=== PATIENT | male | born 2000 | race African-American/Black ===

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

== ENCOUNTER 2025-05-31 16:59 | Emergency (ER) | payer SELFPAY ==
--- NOTE | 2025-05-31 17:08 | ED_ITS ---
HPI - URI/Sore Throat General Chief Complaint: Chest Pain Stated Complaint: Chest discomfort Time Seen by Provider: 05/31/25 17:08 Source: patient Mode of arrival: ambulatory Limitations: no limitations History of Present Illness HPI Narrative: patient is a 24-year-old male who presents with chest discomfort including sharp left-sided pain and pressure across chest for 3 days. Patient states lying down increases pressure and has increased shortness of breath. Denies any belching burning in throat or changes in diet. At times he has nausea with chest pain. Also reports feeling full body numbness, fatigue and sweating. Patient has no official diagnosis of anxiety but states he has been under increased stress and reports feeling anxious. Patient has been given referral to psychiatry in the past but has not followed up. Chest pain is not positional and not reproducible upon palpation. Reports chest pain is present at this time. Patient took DayQuil and NyQuil the 1st day because he thought was a cold. Patient has some congestion but no sore throat or cough. Has not had any fever, chills, vomiting or diarrhea. Related Data Home Medications ?Medication ?Instructions ?Recorded ?Confirmed ?Last Taken ?Type No Home Medications 12/28/20 05/31/25 U nknown History Allergies Allergy/AdvReac Type Severity Reaction Status Date / Time No Known Allergies Allergy Verified 05/31/25 17:32 Review of Systems Review of Systems: All systems reviewed & are unremarkable except as noted in HPI and below Constitutional: Constitutional: Denies body ache(s), Denies chills, Denies fatigue, Denies fever(s), Denies headache(s), Denies malaise and Denies weakness Eyes: Eyes: Denies blurry vision, Denies irritation and Denies loss of vision ENT: Denies otalgia, Denies headache(s), Denies nasal discharge, Denies sinus pain and Denies sore throat Cardiovascular: Cardiovascular: Reports chest pain, Reports chest pain at rest, Denies irregular heart rhythm and Denies dyspnea Respiratory: Respiratory: Reports dyspnea Gastrointestinal: Gastrointestinal: Denies abdominal pain, Denies melena, Denies hematochezia, Denies diarrhea, Denies nausea and Denies vomiting Musculoskeletal: Musculoskeletal: Denies back pain, Denies myalgias and Denies arthralgias Integumentary/Breasts: Skin/Breast: Denies pruritus and Denies rash Neurologic: Denies headache(s), Denies loss of vision and Denies weakness Psychiatric: Psychiatric: Reports no additional psychiatric complaints Endocrine: Endocrine: Denies fatigue PMFSH Comments At time of signature, agree with nursing past medical, surgical, social and family history. There is no relevant family history pertinent to the presenting complaint. Exam Const: General: cooperative, healthy appearing, comfortable, no acute distress and well nourished Nutritional Appearance: well nourished Orientation/consciousness: patient oriented x3 Limitations: no limitations HENMT: Head: normal to inspection, normocephalic and atraumatic Ears: hearing grossly normal bilaterally and external ears normal Face/Nose/Sinus: Normal external nose present, normal facial exam and face symmetric Face and sinus: normal facial exam and face symmetric Mouth: Yes lip normal Eyes: General: appearance normal, both eyes and all related structures Alignment and Position: alignment normal and position normal Periorbital: periorbital findings normal Eyelids: eyelids normal Pupils: Equal, round and reactive pupils present EOM: EOMs intact bilaterally Neck: Neck: normal visual inspection, full ROM and supple Chest: Chest palpation & inspection: normal inspection of the chest Resp: Effort & Inspection: normal respiratory effort and able to speak in complete sentences Auscultation: clear to auscultation bilaterally Cardio: Rate: regular rate Rhythm: regular rhythm Heart sounds: S1 normal heart sound present and S2 normal heart sound present GI: Inspection: normal to inspection Skin: General skin exam: normal color and no rashes or lesions noted Neuro: General: patient oriented x3 and moves all extremities Cranial nerves: Yes Equal, round and reactive pupils present Speech: normal speech Gait exam (Neuro): Normal gait present Extrem: General: normal to inspection, full ROM and no edema Psych: Appearance: grossly normal and well kempt Mental Status: mental status grossly normal Speech and movement: Normal speech and movement present Affect: normal affect Attitude: cooperative Thought process: Normal thought process present Course Course Emergency Course: patient being transferred [facility] for further workup and evaluation for chest pain Portions of this record may have been created with voice recognition software Level of Care: Express Care Visit Vital Signs Vital signs: Vital Signs Temperature 36.9 C 05/31/25 17:17 Pulse Rate 68 05/31/25 17:17 Respiratory Rate 20 05/31/25 17:17 Blood Pressure 125/68 05/31/25 17:17 Pulse Oximetry 100 05/31/25 17:17 Oxygen Delivery Room Air 05/31/25 17:17 Temperature 36.9 C 05/31/25 17:17 Pulse Rate 68 05/31/25 17:17 Respiratory Rate 20 05/31/25 17:17 Blood Pressure 125/68 05/31/25 17:17 Pulse Oximetry 100 05/31/25 17:23 Oxygen Delivery Room Air 05/31/25 17:23 Reviewed Transfer Transfered to: [place] Transportation: Other ( private auto. Ems offered patient declined) Transfer rationale: chest pain Accepting physician: Dr. Henry MDM - URI/Sore Throat MDM Narrative Medical decision making narrative: patient is a 24-year-old male who presents with chest discomfort including sharp left-sided pain and pressure across chest for 3 days. Patient states lying down increases pressure and has increased shortness of breath. Denies any belching burning in throat or changes in diet. At times he has nausea with chest pain. Also reports feeling full body numbness, fatigue and sweating. Patient has no official diagnosis of anxiety but states he has been under increased stress and reports feeling anxious. Patient has been given referral to psychiatry in the past but has not followed up. Chest pain is not positional and not reproducible upon palpation. Reports chest pain is present at this time. Patient took DayQuil and NyQuil the 1st day because he thought was a cold. Patient has some congestion but no sore throat or cough. Has not had any fever, chills, vomiting or diarrhea. patient being transferred [facility] for further workup and evaluation for chest pain. Likely anxiety related in nature. Differential Diagnosis Differential diagnosis: Likely upper respiratory infection and other ( Anxiety, less likely [place]) Medical Records Attestation: I reviewed the patient's medical records. ECG Data EKG #1: Attestation: I personally reviewed and interpreted this ECG as follows: ECG completion date: 05/31/25 ECG completion time: 17:25 Prior ECG tracings: not available for review Interpretation: EKG: VR[76], TX int[143], QRS dur:[105], QT/QTc: [308/411], PRT axes: [9 -6 17], Avg RR:[781], QTcB: [429], QTcF: [412] EKG Interpretation: normal rate and sinus rhythm Discharge Plan Discharge Clinical Impression: Chest pain Patient Disposition: Acute Care Hospital Condition: Stable Patient Language: [place] Prescriptions: No Action No Home Medications Follow-up/Referrals: PHYSICIAN,TWISTER TENDER [Primary Care Provider, Internal Medicine] Time of Disposition: 17:45
[2025-05-31 17:17] VITALS: BP 125/68; PULSE 68; RESP 20; TEMP 36.9; O2SAT 100
[2025-05-31 17:23] VITALS: O2SAT 100
--- NOTE | 2025-05-31 17:49 | ECG_ITS ---
Test Date: 2025-05-31 17:25:03 Measurements Intervals [place] Rate: 76 P: 9 HI: 143 QRS: -6 QRSD: 105 T: 17 QT: 380 QTc: 429 Interpretive Statements NORMAL SINUS RHYTHM No previous ECG available for comparison Electronically Signed On 06-01-2025 08:35:36 MANAGER OF PROGRAM by John Paul Shultz M.D.
== END 2025-05-31 17:40 | disposition short-term general hospital (02) ==
PROVIDERS: Emergency Provider Nurse Practitioner Family
DX: R07.9 Chest pain, unspecified (principal)
CPT/HCPCS: 93005; 99213; G0463

== ENCOUNTER 2025-05-31 18:26 | Emergency (ER) | payer SELFPAY ==
--- NOTE | ~2025-05-31 | XR_ITS ---
EXAMINATION: XR chest 2V, 05/31/2025 18:45 CASH ON DELIVERY CLERK HISTORY: chest pain COMPARISON: No comparisons available. Technique: 2 views obtained. Findings: The lungs are clear, no effusion. No pneumothorax. Heart is normal size. Mediastinal and hilar contours are within normal limits. Bony thorax no acute abnormality. Impression: No acute cardiopulmonary abnormality. Reviewed, dictated and finalized at location P. ON DELIVERY CLERK Impression: No acute cardiopulmonary abnormality.
[2025-05-31 18:28] VITALS: BP 143/88; PULSE 84; RESP 20; TEMP 36.4; O2SAT 100
--- NOTE | 2025-05-31 18:30 | ECG_ITS ---
Test Date: 2025-05-31 18:36:32 Measurements Intervals [place] Rate: 75 P: 51 [place]: 142 QRS: 5 QRSD: 98 T: 25 QT: 371 QTc: 415 Interpretive Statements SINUS RHYTHM WITH OCCASIONAL VENTRICULAR and supraventricular PREMATURE COMPLEXES MINIMAL VOLTAGE CRITERIA FOR LVH, CONSIDER NORMAL VARIANT [MEETS CRITERIA IN ONE OF: R(aVL), S(V1), R(V5), R(V5/V6)+S(V1)] No previous ECG available for comparison Electronically Signed On 05-31-2025 19:00:06 POULTRY PINNER by Remedios Coats M.D.
[2025-05-31 18:53] LABS: Hematocrit 43.1 % (42.0-52.0); Hemoglobin 14.2 g/dL (14.0-18.0); Immature Granulocyte Percent A 0.6 % (0-0.5); Lymphocytes Absolute Auto 2.72 K/mm3 (0.9-3.2); Mean Corpuscular HGB Conc 32.9 g/dl (32-36); Mean Corpuscular Hemoglobin 28.1 pg (26-34); Mean Corpuscular Volume 85.2 fl (80-100); Nucleated Red Blood Cells Absolute Auto 0.000 K/mm3 (0.0-0.012); Nucleated Red Blood Cells Perc 0.0 % (0.0-0.2); Platelet Count Result 265 k/mm3 (150-375); Red Blood Count 5.06 M/mm3 (4.6-6.20); White Blood Count 10.0 K/mm3 (4.5-10.0)
[2025-05-31] MEDS: ASPIRIN 81 MG CHEWABLE TABLET 324 MG PO (18:57)
[2025-05-31 19:05] LABS: Alanine Aminotransferase 107 U/L (6-50); Albumin Level 4.8 g/dL (3.5-5.1); Alkaline Phosphatase 96 U/L (38-126); Anion Gap 6 mmol/L (4-12); Aspartate Amino Transferase 53 U/L (17-59); Bilirubin,Total 0.6 mg/dL (0.2-1.3); Blood Urea Nitrogen 10 mg/dL (9-20); Calcium 9.5 mg/dL (8.4-10.2); Carbon Dioxide 26 mmol/L (22-30); Chloride 105 mmol/L (98-107); Estimated CRCL calculation 130 ml/min; Estimated Glomerular Filt Rate > 60; Glucose 97 mg/dL (65-110); Lipase 62 U/L (23-300); Potassium 3.8 mmol/L (3.4-5.0); Sodium 137 mmol/L (137-145); Total Protein 8.4 g/dL (6.3-8.2)
[2025-05-31 19:16] LABS: Troponin I < 0.012 ng/mL (0.000-0.034)
[2025-05-31 19:41] LABS: INR 1.0; Prothrombin Time 12.9 Seconds (11.1-14.7)
[2025-05-31 19:42] LABS: Partial Thromboplastin Time 29.5 Seconds (22.3-36.8)
--- NOTE | 2025-05-31 20:13 | ED.GENADULT ---
HPI - General Adult General Chief complaint: Chest Pain Stated complaint: chest pain x 2 weeks Time Seen by Provider: 05/31/25 19:12 History of Present Illness HPI narrative: Patient is a 24-year-old gentleman who presents emergency department with chief complaint of chest discomfort patient reports for the last 2 weeks he has been having episodes where he has discomfort in his chest the patient reports that he has a tightness in his chest also reports that he feels tingly over his whole body patient states that nothing specifically triggers the episodes and reports that it lasting where from a few seconds to a few minutes the patient reports no prior cardiac history reports that he currently does not have a primary care provider Related Data Home Medications ?Medication ?Instructions ?Recorded ?Confirmed ?Last Taken ?Type No Home Medications 12/28/20 05/31/25 Unknown History Allergies Allergy/AdvReac Type Severity Reaction Status Date / Time No Known Allergies Allergy Verified 05/31/25 18:32 Review of Systems Review of Systems: A 10 system review of systems was completed on the patient and is negative except for what is stated in the HPI. Nursing and ancillary documentation was reviewed. Exam Narrative: GENERAL: Well-appearing, well-nourished, and in no acute distress. HEAD: Normocephalic, atraumatic. EYES: PERRLA and EOMI. ENT: Nares clear, no rhinorrhea or epistaxis. Mucous membranes moist. NECK: Supple. CHEST: Clear to auscultation. No respiratory distress. HEART: Regular rate and rhythm. No murmur heard. Normal peripheral pulses. ABDOMEN: Soft, nontender, nondistended, normal active bowel sounds. EXTREMITIES: Normal range of motion. No edema. SKIN: Warm, dry, no rash. NEURO: No focal deficits. Alert and oriented x3. PSYCH: Normal mood and affect. Course Course Emergency Course: Differential diagnosis includes ACS, noncardiac chest pain, gastroesophageal reflux disease, anxiety, EKG showed no acute ischemic change Chest x-ray showed no focal infiltrate Initial troponin was negative 3 hour repeat troponin was negative Vital Signs Vital signs: Vital Signs Temperature 36.4 C 05/31/25 18:28 Pulse Rate 84 05/31/25 18:28 Respiratory Rate 20 05/31/25 18:28 Blood Pressure 143/88 H 05/31/25 18:28 Pulse Oximetry 100 05/31/25 18:28 Oxygen Delivery Room Air 05/31/25 18:28 Temperature 36.4 C 05/31/25 18:28 Pulse Rate 69 05/31/25 21:50 Respiratory Rate 16 05/31/25 21:50 Blood Pressure 113/76 05/31/25 21:50 Pulse Oximetry 100 05/31/25 21:50 Oxygen Delivery Room Air 05/31/25 21:02 Medical Decision Making Vital Signs Vital Signs: Vital Signs Temperature 36.4 C 05/31/25 18:28 Pulse Rate 84 05/31/25 18:28 Respiratory Rate 20 05/31/25 18:28 Blood Pressure 143/88 H 05/31/25 18:28 Pulse Oximetry 100 05/31/25 18:28 Oxygen Delivery Room Air 05/31/25 18:28 Temperature 36.4 C 05/31/25 18:28 Pulse Rate 69 05/31/25 21:50 Respiratory Rate 16 05/31/25 21:50 Blood Pressure 113/76 05/31/25 21:50 Pulse Oximetry 100 05/31/25 21:50 Oxygen Delivery Room Air 05/31/25 21:02 Lab Data 05/31/25 18:42 05/31/25 18:42 Labs: Lab Results 05/31/25 05/31/25 Range/Units 18:42 21:13 WBC 10.0 (4.5-10.0) K/mm3 RBC 5.06 (4.6-6.20) M/mm3 Hgb 14.2 (14.0-18.0) g/dL Hct 43.1 (42.0-52.0) % MCV 85.2 (80-100) fl MCH 28.1 (26-34) pg MCHC 32.9 (32-36) g/dl RDW 12.1 (11.5-14.5) % Plt Count 265 (150-375) k/mm3 MPV 9.6 (7.4-10.4) fl Immature Gran % (Auto) 0.6 H (0-0.5) % Neut % (Auto) 59.3 (45.5-73.1) % Lymph % (Auto) 27.2 (18.3-44.2) % [place] % (Auto) 11.2 H (2.6-8.5) % Eos % (Auto) 0.9 (0-4.4) % Baso % (Auto) 0.8 (0.2-1.2) % Lymph # (Auto) 2.72 (0.9-3.2) K/mm3 [place] # (Auto) 1.1 H (0.1-0.6) K/mm3 Eos # (Auto) 0.1 (0-0.3) K/mm3 Baso # (Auto) 0.1 (0.0-0.1) K/mm3 Abs Immat Gran (auto) 0.06 H (0.00-0.031) K/mm3 Absolute Neuts (auto) 5.9 (1.3-6.7) K/mm3 Absolute Nucleated RBC 0.000 (0.0-0.012) K/mm3 Nucleated RBC % 0.0 (0.0-0.2) % PT 12.9 (11.1-14.7) Seconds INR 1.0 APTT 29.5 (22.3-36.8) Seconds Sodium 137 (137-145) mmol/L Potassium 3.8 (3.4-5.0) mmol/L Chloride 105 (98-107) mmol/L Carbon Dioxide 26 (22-30) mmol/L Anion Gap 6 (4-12) mmol/L BUN 10 (9-20) mg/dL Creatinine 0.89 (0.7-1.3) mg/dL Estim Creat Clear Calc 130 ml/min Estimated GFR > 60 (59 - ) Glucose 97 (65-110) mg/dL Calcium 9.5 (8.4-10.2) mg/dL Total Bilirubin 0.6 (0.2-1.3) mg/dL AST 53 (17-59) U/L ALT 107 H (6-50) U/L Alkaline Phosphatase 96 (38-126) U/L Troponin I < 0.012 < 0.012 (0.000-0.034) ng/mL Total Protein 8.4 H (6.3-8.2) g/dL Albumin 4.8 (3.5-5.1) g/dL Lipase 62 (23-300) U/L Discharge Plan Discharge Clinical Impression: Atypical chest pain Patient Disposition: Home Condition: Stable Instructions: Antibiotic Form, Chest Pain (ED) Patient Language: Citizen Of [place] Prescriptions: No Action No Home Medications Follow-up/Referrals: PHYSICIAN,COLOR SPECIALIST [Primary Care Provider, Internal Medicine] Reza Amaya MD [Physician, Family Practice] Time of Disposition: 22:01 Quality HEART score for chest pain patients History: slightly suspicious ECG: normal Age: < or = to 45 years Risk factors: no risk factors known Troponin: < or = to 1x normal limit Heart score: 0
--- NOTE | 2025-05-31 21:08 | ECG_ITS ---
Test Date: 2025-05-31 21:08:58 Measurements Intervals [place] Rate: 63 P: -12 [place]: 144 QRS: -11 QRSD: 106 T: 4 QT: 405 QTc: 418 Interpretive Statements SINUS RHYTHM BASELINE ARTIFACT- I, II, AVL NORMAL ECG Compared to ECG 05/31/2025 18:36:32 NO SIGNIFICANT CHANGE Electronically Signed On 06-01-2025 05:47:45 SPINAL SURGEON by Patrick Herman D.O.
[2025-05-31 21:47] LABS: Troponin I < 0.012 ng/mL (0.000-0.034)
[2025-05-31 21:50] VITALS: BP 113/76; PULSE 69; RESP 16; O2SAT 100
[2025-05-31 22:13] VITALS: BP 119/74; PULSE 69; RESP 18; O2SAT 97
== END 2025-05-31 22:23 | disposition home or self-care (01) ==
PROVIDERS: Emergency Medicine; Emergency Provider Emergency Medicine
DX: R07.89 Other chest pain (principal); I49.3 Ventricular premature depolarization; I49.1 Atrial premature depolarization
CPT/HCPCS: 36415; 71046; 80053; 83690; 84484; 85025; 85610; 85730; 93005; 99284; A9270

== ENCOUNTER 2025-06-18 17:49 | Emergency (ER) | payer SELFPAY ==
--- NOTE | ~2025-06-18 | XR_ITS ---
EXAMINATION: XR chest 2V DATE: 06/18/2025 18:30 INDICATION: Chest pain TECHNIQUE: PA and lateral views of the chest were obtained. COMPARISON: Chest radiograph dated 05/31/2025 FINDINGS: The lungs are clear with no focal airspace opacities, pulmonary edema, pleural effusion or pneumothorax. The cardiomediastinal silhouette is normal. Visualized bones and soft tissues are unremarkable. IMPRESSION: 1. Normal chest radiograph. Reviewed, dictated and finalized at location A. [facility] IMPRESSION: 1. Normal chest radiograph.
[2025-06-18 17:51] VITALS: BP 125/81; PULSE 112; RESP 18; TEMP 36.9; O2SAT 100
--- NOTE | 2025-06-18 17:55 | ECG_ITS ---
Test Date: 2025-06-18 17:59:20 Measurements Intervals [place] Rate: 96 P: 26 ID: [id number] QRS: 1 QRSD: 110 T: 58 QT: 343 QTc: 435 Interpretive Statements SINUS RHYTHM WITH SHORT ID INTERVAL WITH OCCASIONAL VENTRICULAR PREMATURE COMPLEXES BORDERLINE ECG Compared to ECG 05/31/2025 21:08:58 Ventricular premature complex(es) now present Electronically Signed On 06-18-2025 18:46:53 ZUMBA INSTRUCTOR by Patrick Herman D.O.
--- NOTE | 2025-06-18 18:14 | ED_ITS ---
HPI - Anxiety General Chief Complaint: Anxiety Stated Complaint: anxiety Time Seen by Provider: 06/18/25 17:51 Source: patient Mode of arrival: EMS Limitations: no limitations History of Present Illness HPI narrative: This is a 24-year-old male who presents to the ED for palpitations. Patient states that he was walking into his bedroom when he had onset of palpitations. He did have some mild shortness of breath denies any chest pain. Denies fevers, chills. Reports mild nausea. He was supposed to see a pin feather machine operator today but was unable to go as he was unable to void. Related Data Home Medications ?Medication ?Instructions ?Recorded ?Confirmed ?Last Taken ?Type No Home Medications 12/28/20 05/31/25 U nknown History Allergies Allergy/AdvReac Type Severity Reaction Status Date / Time No Known Allergies Allergy Verified 06/18/25 17:51 Review of Systems 2 Review of Systems: All systems reviewed & are unremarkable except as noted in HPI and below PMFSH Social History Social History Substance use type: marijuana Exam 2 Narrative: APPEARANCE: No acute distress, nontoxic, resting in bed EYES: EOMI HEENT: Normocephalic, atraumatic, OMM RESPIRATORY: No respiratory distress Clear to auscultation bilaterally with no rhonchi wheezing or rales. CARDIOVASCULAR: Tachycardic with regular rhythm without murmurs rubs or gallops. ABDOMINAL: Soft, nontender, nondistended, no rebound or guarding MUSCULOSKELETAl: Moves all extremities. No clubbing, cyanosis or edema. NEURO: Awake and alert. Following commands, speech normal, no focal deficits SKIN:: Warm, dry. No rashes lesions or abrasions PSYCHIATRIC: Normal affect/mood, Course Vital Signs Vital signs: Vital Signs Temperature 98.5 F 06/18/25 17:51 Pulse Rate 112 H 06/18/25 17:51 Respiratory Rate 18 06/18/25 17:51 Blood Pressure 125/81 06/18/25 17:51 Pulse Oximetry 100 06/18/25 17:51 Oxygen Delivery Room Air 06/18/25 17:51 Temperature 98.5 F 06/18/25 17:51 Pulse Rate 103 H 06/18/25 19:00 Respiratory Rate 26 H 06/18/25 19:00 Blood Pressure 125/81 06/18/25 17:51 Pulse Oximetry 99 06/18/25 19:00 Oxygen Delivery Room Air 06/18/25 17:51 [facility] Narrative Medical decision making narrative: 24-year-old male Presenting for palpitation. On initial evaluation patient was in no acute distress afebrile, hemodynamic stable. Differentials include but are not limited to: ACS, PE, pneumonia, viral syndrome, arrhythmia, electrolyte abnormality, anxiety Notable exam findings: Borderline tachycardia without murmurs. Lungs clear. I personally reviewed the patient's lab result. Notable lab findings: CBC and CMP without significant abnormalities. I personally reviewed the patient's images and interpret as follows: Chest x- ray: Normal cardiac silhouette, no consolidations, no pleural effusions, no pulmonary vascular congestion I personally reviewed the patient's EKGs: Normal sinus rhythm, normal axis, normal intervals, no acute ST or T-wave changes Patient's EKGs and labs are without significant high risk changes. Cardiac risk factors reviewed. Patient is felt likely low risk for ACS and reasonable for further risk stratification testing as an outpatient. Pain was not sudden or maximal in onset without tearing or ripping quality. No other signs of symptoms suggest aortic dissection. A low-risk Wells criteria is noted, PE is felt to be unlikely. No pneumonia seen on evaluation today. Patient is felt to be a reasonable candidate for continued evaluation as an outpatient. Patient was deemed appropriate for discharge at this time. Patient was advised follow-up with their PCP in the next week for re-evaluation. Patient was agreeable to this plan. Given strict return precautions. Differential Diagnosis Differential Diagnosis: ACS, PE, pneumonia, viral syndrome, arrhythmia, electrolyte abnormality, anxiety Lab Data 06/18/25 18:22 06/18/25 18:22 Labs: Lab Results 06/18/25 Range/Units 18:22 WBC 9.9 (4.5-10.0) K/mm3 RBC 5.03 (4.6-6.20) M/mm3 Hgb 14.5 (14.0-18.0) g/dL Hct 44.1 (42.0-52.0) % MCV 87.7 (80-100) fl MCH 28.8 (26-34) pg MCHC 32.9 (32-36) g/dl RDW 12.2 (11.5-14.5) % Plt Count 298 (150-375) k/mm3 MPV 10.1 (7.4-10.4) fl Immature Gran % (Auto) 0.4 (0-0.5) % Neut % (Auto) 69.5 (45.5-73.1) % Lymph % (Auto) 21.5 (18.3-44.2) % [place] % (Auto) 6.8 (2.6-8.5) % Eos % (Auto) 1.3 (0-4.4) % Baso % (Auto) 0.5 (0.2-1.2) % Lymph # (Auto) 2.12 (0.9-3.2) K/mm3 [place] # (Auto) 0.7 H (0.1-0.6) K/mm3 Eos # (Auto) 0.1 (0-0.3) K/mm3 Baso # (Auto) 0.1 (0.0-0.1) K/mm3 Abs Immat Gran (auto) 0.04 H (0.00-0.031) K/mm3 Absolute Neuts (auto) 6.9 H (1.3-6.7) K/mm3 Absolute Nucleated RBC 0.000 (0.0-0.012) K/mm3 Nucleated RBC % 0.0 (0.0-0.2) % PT 13.2 (11.1-14.7) Seconds INR 1.0 APTT 29.3 (22.3-36.8) Seconds D-Dimer < 0.27 (<0.48) ug/mL Sodium 140 (137-145) mmol/L Potassium 3.5 (3.4-5.0) mmol/L Chloride 104 (98-107) mmol/L Carbon Dioxide 28 (22-30) mmol/L Anion Gap 8 (4-12) mmol/L BUN 12 (9-20) mg/dL Creatinine 0.99 (0.7-1.3) mg/dL Estim Creat Clear Calc 117 ml/min Estimated GFR > 60 (59 - ) Glucose 165 H (65-110) mg/dL Calcium 9.3 (8.4-10.2) mg/dL Total Bilirubin 0.7 (0.2-1.3) mg/dL AST 45 (17-59) U/L ALT 85 H (6-50) U/L Alkaline Phosphatase 83 (38-126) U/L Troponin I < 0.012 (0.000-0.034) ng/mL Total Protein 8.4 H (6.3-8.2) g/dL Albumin 4.7 (3.5-5.1) g/dL Lipase 75 (23-300) U/L Imaging Data Radiologist's impression: ITS Impressions Chest X-Ray 06/18/25 18:35 IMPRESSION: 1. Normal chest radiograph. Discharge Plan Discharge Clinical Impression: Palpitations Patient Disposition: Home Condition: Stable Instructions: Antibiotic Form, Heart Palpitations (ED) Additional Instructions: Lab work, chest x-ray, EKG were all reassuring and not indicative of heart damage at this time. It is unclear the source of your palpitations at this time. Continue to seek follow-up with cardiology as previously discussed. Your also given a referral to Dr. Amaya, PCP, to establish care. Return to the ED for new or worsening symptoms. Patient Language: Armenian Prescriptions: No Action No Home Medications Follow-up/Referrals: PHYSICIAN,[facility] [Primary Care Provider, Internal Medicine] Reza Amaya MD [Physician, Family Practice]
[2025-06-18 18:30] VITALS: PULSE 110; RESP 24; O2SAT 99
[2025-06-18 18:37] LABS: Alanine Aminotransferase 85 U/L (6-50); Albumin Level 4.7 g/dL (3.5-5.1); Alkaline Phosphatase 83 U/L (38-126); Anion Gap 8 mmol/L (4-12); Aspartate Amino Transferase 45 U/L (17-59); Bilirubin,Total 0.7 mg/dL (0.2-1.3); Blood Urea Nitrogen 12 mg/dL (9-20); Calcium 9.3 mg/dL (8.4-10.2); Carbon Dioxide 28 mmol/L (22-30); Chloride 104 mmol/L (98-107); Estimated CRCL calculation 117 ml/min; Estimated Glomerular Filt Rate > 60; Glucose 165 mg/dL (65-110); Lipase 75 U/L (23-300); Potassium 3.5 mmol/L (3.4-5.0); Sodium 140 mmol/L (137-145); Total Protein 8.4 g/dL (6.3-8.2)
[2025-06-18 18:45] VITALS: PULSE 107; RESP 19; O2SAT 100
[2025-06-18 18:45] LABS: INR 1.0; Prothrombin Time 13.2 Seconds (11.1-14.7)
[2025-06-18 18:46] LABS: Partial Thromboplastin Time 29.3 Seconds (22.3-36.8)
[2025-06-18 18:49] LABS: Troponin I < 0.012 ng/mL (0.000-0.034)
[2025-06-18 19:00] VITALS: PULSE 103; RESP 26; O2SAT 99
[2025-06-18] MEDS: SODIUM CHLORIDE 0.9% IV 1,000 ML 999 ML IV CONT (19:02)
[2025-06-18] MEDS: ASPIRIN 81 MG CHEWABLE TABLET 324 MG PO (19:03)
[2025-06-18 19:04] VITALS: BP 127/68; PULSE 103; RESP 17; O2SAT 100
--- NOTE | 2025-06-18 19:10 | PC.NURSE ---
called lab, aware of D-dimer. Will work on it. Lav in process.
[2025-06-18 19:12] LABS: Hematocrit 44.1 % (42.0-52.0); Hemoglobin 14.5 g/dL (14.0-18.0); Immature Granulocyte Percent A 0.4 % (0-0.5); Lymphocytes Absolute Auto 2.12 K/mm3 (0.9-3.2); Mean Corpuscular HGB Conc 32.9 g/dl (32-36); Mean Corpuscular Hemoglobin 28.8 pg (26-34); Mean Corpuscular Volume 87.7 fl (80-100); Nucleated Red Blood Cells Absolute Auto 0.000 K/mm3 (0.0-0.012); Nucleated Red Blood Cells Perc 0.0 % (0.0-0.2); Platelet Count Result 298 k/mm3 (150-375); Red Blood Count 5.03 M/mm3 (4.6-6.20); White Blood Count 9.9 K/mm3 (4.5-10.0)
[2025-06-18] MEDS: LORazepam (*CRX) 0.5 MG TABLET PO (19:37)
[2025-06-18 19:57] VITALS: BP 122/74; PULSE 100; RESP 18; O2SAT 100
== END 2025-06-18 20:00 | disposition home or self-care (01) ==
PROVIDERS: Emergency Provider Student in an Organized Health Care Education/Training Program
DX: R00.2 Palpitations (principal)
CPT/HCPCS: 36415; 71046; 80053; 83690; 84484; 85025; 85380; 85610; 85730; 93005; 96360; 99284; A9270; J7030